=== PATIENT | female | born 1955 | race Two or more races ===

== ENCOUNTER 2019-08-29 00:26 | Emergency (ER) | payer MEDICARE ==
[~2019-08-29] VITALS: Ht 165.1 cm; Wt 72.6 kg
--- NOTE | 2019-08-29 00:44 | Emergency Room Report ---
History of Present Illness General Chief Complaint: Constipation Source: Patient Present Illness HPI Disclaimer: Please note that this report is being documented using DRAGON technology. This can lead to erroneous entry secondary to incorrect interpretation by the dictating instrument. HPI: 64-year-old female presents for evaluation of constipation abdominal cramping. Symptoms present for days. The patient states she is unable to pass a bowel movement in the past 4 days but continues to pass flatus. She has used prunes at home but no medications. Reports nausea but no vomiting. Her abdominal cramping is diffuse. No change in her diet or health otherwise. Denies recent fever, chills, diarrhea, vomiting, chest pain, palpitations, rash , cough shortness of breath or other symptoms. PMH: Prediabetes PSH: Hysterectomy Allergies: Denies Social Hx: Denies Allergies: Coded Allergies: No Known Allergies (Unverified , 08/29/19) COVID-19 Screening Contact w/high risk pt: No Experienced COVID-19 symptoms?: No COVID-19 Testing performed GROUND MIXER: No COVID-19 Screening: Negative COVID-19 COVID-19 Testing Source: 08/27/19 Patient History Last Menstrual Period: n/a Nursing Documentation-PMH Past Medical History: No Stated History Review of Systems All Other Systems: negative except mentioned in HPI Physical Exam Vital Signs Date Time Temp Pulse Resp B/P (MAP) Pulse Ox O2 Delivery O2 Flow Rate FiO2 08/29/19 00:35 97.5 98 18 162/76 (104) 98 General: Awake and alert, appears uncomfortable, pacing in the room HEENT: NC/AT. EOMI. Cardiovascular: RRR. S1 and S2 normal. No murmur appreciated Resp: Normal work of breathing. No cough, wheezing or crackles appreciated Abdomen: Abdomen is soft, moderately distended. Tender to palpation diffusely. No guarding. No rebound. Skin: Intact. No abrasions, laceration or rash over the exposed skin MSK: Normal tone and bulk. Moving all extremities. No obvious deformity. Neuro: Awake and alert. Mentating appropriately. Medical Decision Making Diagnostic Impression: Primary Impression: Constipation Additional Impressions: Fecal impaction Fatty liver ER Course 64-year-old female presents for evaluation of 4 days of abdominal pain and constipation. Greatest concern for possible obstruction including volvulus, SBO or impaction. Labs were obtained and returned within normal limits. No evidence of gross electrolyte abnormality, urinary tract infection or other significant findings. A CT was obtained showing significant stool in the rectum consistent with impaction. Patient was treated with magnesium citrate and fleets enema. Minimal improvement and a manual disimpaction was performed after which she had a bowel movement and reports feeling much better. Patient will be discharged on MiraLAX and docusate and follow-up with her PMD. Instructed to return to the ED with any new or worsening symptoms. She understands and agrees with the treatment plan. Laboratory Tests Test 08/29/19 00:45 08/29/19 00:55 White Blood Count 12.8 K/UL (4.8-10.8) H Red Blood Count 4.30 M/UL (4.20-5.40) Hemoglobin 12.1 G/DL (12.0-16.0) Hematocrit 36.0 % (37.0-47.0) L Mean Corpuscular Volume 84 FL (80-99) Mean Corpuscular Hemoglobin 28.0 PG (27.0-31.0) Mean Corpuscular Hemoglobin Concent 33.4 G/DL (32.0-36.0) Red Cell Distribution Width 12.2 % (11.6-14.8) Platelet Count 331 K/UL (150-450) Mean Platelet Volume 6.4 FL (6.5-10.1) L Neutrophils (%) (Auto) 67.7 % (45.0-75.0) Lymphocytes (%) (Auto) 23.8 % (20.0-45.0) Monocytes (%) (Auto) 6.8 % (1.0-10.0) Eosinophils (%) (Auto) 1.1 % (0.0-3.0) Basophils (%) (Auto) 0.6 % (0.0-2.0) Sodium Level 138 MMOL/L (136-145) Potassium Level 3.8 MMOL/L (3.5-5.1) Chloride Level 101 MMOL/L (98-107) Carbon Dioxide Level 24 MMOL/L (21-32) Anion Gap 13 mmol/L (5-15) Blood Urea Nitrogen 17 mg/dL (7-18) Creatinine 0.8 MG/DL (0.55-1.30) Estimated Glomerular Filtration Rate > 60 mL/min (>60) Glucose Level 139 MG/DL (74-106) H Calcium Level 9.3 MG/DL (8.5-10.1) Total Bilirubin 0.2 MG/DL (0.2-1.0) Aspartate Amino Transferase (AST) 20 U/L (15-37) Alanine Aminotransferase (ALT) 24 U/L (12-78) Alkaline Phosphatase 100 U/L (46-116) Total Protein 8.5 G/DL (6.4-8.2) H Albumin 4.5 G/DL (3.4-5.0) Globulin 4.0 g/dL Albumin/Globulin Ratio 1.1 (1.0-2.7) Lipase 264 U/L (73-393) Urine Color Yellow Urine Appearance Clear Urine pH 5 (4.5-8.0) Urine Specific [place] 1.020 (1.005-1.035) Urine Protein Negative (NEGATIVE) Urine Glucose (UA) Negative (NEGATIVE) Urine Ketones Negative (NEGATIVE) Urine Blood 2+ (NEGATIVE) H Urine Nitrite Negative (NEGATIVE) Urine Bilirubin Negative (NEGATIVE) Urine Urobilinogen Normal MG/DL (0.0-1.0) Urine Leukocyte Esterase 1+ (NEGATIVE) H Urine RBC 0-2 /HPF (0 - 2) Urine WBC 2-4 /HPF (0 - 2) Urine Squamous Epithelial Cells Occasional /LPF Urine Bacteria None /HPF (NONE) CT/MRI/US Diagnostic Results CT/MRI/US Diagnostic Results : Impression Final Report EXAM: CT Abdomen and Pelvis Without Intravenous Contrast CLINICAL HISTORY: ABD PAIN TECHNIQUE: Axial computed tomography images of the abdomen and pelvis without intravenous contrast. CTDI is 7.5 mGy and DLP is 394.6 mGy-cm. One or more of the following dose reduction techniques were used: automated exposure control, adjustment of the mA and/or kV according to patient size, use of iterative reconstruction technique. COMPARISON: None. FINDINGS: Lung bases: Minimal subsegmental atelectasis at the lung bases. Heart: The heart is normal in size. Mediastinum: Small hiatal hernia. Possible distal esophagitis. ABDOMEN: Liver: Diffuse fatty infiltration of the liver is noted. The liver and the spleen are normal in contour. Gallbladder and bile ducts: See below. Pancreas: The head, body, tail of the pancreas and the gallbladder are unremarkable. No ductal dilation. Spleen: See above. Adrenals: A 0.5 cm probable left adrenal adenoma. No follow-up is advised. The right adrenal gland is unremarkable. Kidneys and ureters: No renal calculus or masses. No hydronephrosis. Stomach and bowel: Presumed ingested material in the stomach. Moderate quantity of stool throughout the colon. No evidence of bowel obstruction. The rectosigmoid is distended with stool measuring 9 x 5.3 x 6.2 cm. No mucosal thickening. PELVIS: Appendix: No findings to suggest acute appendicitis. Bladder: Unremarkable. No stones. Reproductive: Unremarkable as visualized. ABDOMEN and PELVIS: Intraperitoneal space: Unremarkable. No free air. No significant fluid collection. Bones/joints: Moderate degenerative disc disease of the spinal:. Mild to moderate osteoarthritic changes about the sacroiliac joints. Alignment of the thoracolumbar spine is unremarkable. The sacrum and coccyx are unremarkable. No acute fracture. Soft tissues: Ischiorectal fat is clean. Vasculature: Abdominal aorta is normal in caliber. Minimal atherosclerotic disease of the abdominal aorta. No abdominal aortic aneurysm. Lymph nodes: No retroperitoneal lymphadenopathy. No pelvic or inguinal lymphadenopathy. IMPRESSION: 1. Fatty infiltration of the liver. 2. Distention of the rectosigmoid with stool. 3. Findings worrisome for fecal impaction. 4. No renal calculus or hydronephrosis. Radiologist: Jarett Cummins MD Electronically Signed: 08/29/19 01:43 Study ready at 01:30 and initial results transmitted at 01:43 Last Vital Signs Date Time Temp Pulse Resp B/P (MAP) Pulse Ox O2 Delivery O2 Flow Rate FiO2 08/29/19 00:35 97.5 98 18 162/76 104) 98 Disposition: HOME, SELF-CARE Condition: Improved Scripts Docusate Sodium* (DOCUSATE SODIUM*) 100 Mg Capsule 100 MG ORAL TWICE A DAY for 5 Days, #10 CAP Prov: Vaughn Cummings MD 08/29/19 Polyethylene Glycol 3350* (MIRALAX*) 17 Gm Powd.pack 17 GM ORAL BID for 14 Days, #28 PACKET Prov: Vaughn Cummings MD 08/29/19 Vaughn Cummings MD Aug 29, 2019 00:44
[2019-08-29 00:55] LABS: BASOPHILS % (AUTO) 0.6 % (0.0-2.0); EOSINOPHILS % (AUTO) 1.1 % (0.0-3.0); HEMOGLOBIN 12.1 G/DL (12.0-16.0); LYMPHOCYTES % (AUTO) 23.8 % (20.0-45.0); MEAN CORPUSCULAR VOLUME 84 FL (80-99); MONOCYTES % (AUTO) 6.8 % (1.0-10.0); NEUTROPHILS % (AUTO) 67.7 % (45.0-75.0); PLATELET COUNT 331 K/UL (150-450); RED CELL DISTRIBUTION WIDTH 12.2 % (11.6-14.8); WHITE BLOOD COUNT 12.8 K/UL (4.8-10.8)
[2019-08-29 01:02] VITALS: BP 162/76
[2019-08-29 01:05] LABS: ANION GAP 13 mmol/L (5-15); BLOOD UREA NITROGEN 17 mg/dL (7-18); CALCIUM 9.3 MG/DL (8.5-10.1); CARBON DIOXIDE 24 MMOL/L (21-32); CHLORIDE 101 MMOL/L (98-107); CREATININE 0.8 MG/DL (0.55-1.30); POTASSIUM 3.8 MMOL/L (3.5-5.1); SODIUM 138 MMOL/L (136-145)
[2019-08-29 01:09] LABS: ALANINE AMINOTRANSFERASE 24 U/L (12-78); ALBUMIN 4.5 G/DL (3.4-5.0); ALBUMIN/GLOBULIN RATIO 1.1 (1.0-2.7); ALKALINE PHOSPHATASE 100 U/L (46-116); ASPARTATE AMINO TRANSFERASE 20 U/L (15-37); BILIRUBIN,TOTAL 0.2 MG/DL (0.2-1.0)
[2019-08-29 01:11] LABS: APPEARANCE,URINE CLEAR; BILIRUBIN, URINE NEGATIVE (NEGATIVE); GLUCOSE, URINE (UA) NEGATIVE (NEGATIVE); KETONES,URINE NEGATIVE (NEGATIVE); LEUKOCYTE ESTERASE ,URINE 1+ (NEGATIVE); NITRITE,URINE NEGATIVE (NEGATIVE); PH,URINE 5 (4.5-8.0); PROTEIN,URINE NEGATIVE (NEGATIVE); UROBILINOGEN,URINE NORMAL MG/DL (0.0-1.0)
[2019-08-29 01:13] LABS: COLOR,URINE YELLOW
--- NOTE | 2019-08-29 01:44 | Diagnostic Imaging Report ---
EXAM: CT Abdomen and Pelvis Without Intravenous Contrast CLINICAL HISTORY: ABD PAIN TECHNIQUE: Axial computed tomography images of the abdomen and pelvis without intravenous contrast. CTDI is 7.5 mGy and DLP is 394.6 mGy-cm. One or more of the following dose reduction techniques were used: automated exposure control, adjustment of the mA and/or kV according to patient size, use of iterative reconstruction technique. COMPARISON: None. FINDINGS: Lung bases: Minimal subsegmental atelectasis at the lung bases. Heart: The heart is normal in size. Mediastinum: Small hiatal hernia. Possible distal esophagitis. ABDOMEN: Liver: Diffuse fatty infiltration of the liver is noted. The liver and the spleen are normal in contour. Gallbladder and bile ducts: See below. Pancreas: The head, body, tail of the pancreas and the gallbladder are unremarkable. No ductal dilation. Spleen: See above. Adrenals: A 0.5 cm probable left adrenal adenoma. No follow-up is advised. The right adrenal gland is unremarkable. Kidneys and ureters: No renal calculus or masses. No hydronephrosis. Stomach and bowel: Presumed ingested material in the stomach. Moderate quantity of stool throughout the colon. No evidence of bowel obstruction. The rectosigmoid is distended with stool measuring 9 x 5.3 x 6.2 cm. No mucosal thickening. PELVIS: Appendix: No findings to suggest acute appendicitis. Bladder: Unremarkable. No stones. Reproductive: Unremarkable as visualized. ABDOMEN and PELVIS: Intraperitoneal space: Unremarkable. No free air. No significant fluid collection. Bones/joints: Moderate degenerative disc disease of the spinal:. Mild to moderate osteoarthritic changes about the sacroiliac joints. Alignment of the thoracolumbar spine is unremarkable. The sacrum and coccyx are unremarkable. No acute fracture. Soft tissues: Ischiorectal fat is clean. Vasculature: Abdominal aorta is normal in caliber. Minimal atherosclerotic disease of the abdominal aorta. No abdominal aortic aneurysm. Lymph nodes: No retroperitoneal lymphadenopathy. No pelvic or inguinal lymphadenopathy. IMPRESSION: 1. Fatty infiltration of the liver. 2. Distention of the rectosigmoid with stool. 3. Findings worrisome for fecal impaction. 4. No renal calculus or hydronephrosis.
[2019-08-29] MEDS ORDERED: Magnesium Citrate Liq Btl ORAL ONE (02:15)
[2019-08-29] MEDS ORDERED: Fleet's Enema 133ml RECTAL ONE (02:15)
[2019-08-29] MEDS ORDERED: MIRALAX17 G2 ORAL (02:21)
[2019-08-29] MEDS ORDERED: DOCUSATE SODIU100 MG ORAL (04:02)
[2019-08-29 06:10] VITALS: BP 162/76
== END 2019-08-29 06:10 | disposition home or self-care (01) ==
LOC: EMR 00:51
DX: K59.00 Constipation, unspecified (principal); K56.41 Fecal impaction; K76.0 Fatty (change of) liver, not elsewhere classified; Z90.710 Acquired absence of both cervix and uterus; R73.03 Prediabetes; I70.0 Atherosclerosis of aorta; K44.9 Diaphragmatic hernia without obstruction or gangrene
CPT/HCPCS: 36415; 74176; 80053; 81003; 83690; 85025; 96361; 96374; 96376; 99284; J2405; J7030